=== PATIENT | female | born 1985 | race Two or more races ===

== ENCOUNTER 2018-07-21 18:30 | Emergency (ER) | payer MEDICAID, OTHER ==
[~2018-07-21] VITALS: Ht 154.9 cm; Wt 45.4 kg
--- NOTE | 2018-07-21 18:47 | NUR ---
ED Nurse Note: Patient brought in by staff from [facility] d/t BLE edema for 4 days, per staff from [facility], she has gained 4lbs over 1 month. patient is nonverbal at this time, able to follow simple commands
[2018-07-21] MEDS ORDERED: HUMALOG100 UNIT/4 SUBQ (18:53)
[2018-07-21] MEDS ORDERED: BENADRYL25 MG ORAL (18:53)
[2018-07-21] MEDS ORDERED: RISPERDAL0.5 MG ORAL (18:53)
[2018-07-21 19:05] VITALS: BP 112/68
--- NOTE | 2018-07-21 19:09 | NUR ---
HAND-OFF: Report given to RADHA DIXON. caregiver at bedside, patient on the monitor, VSS
--- NOTE | 2018-07-21 19:10 | NUR ---
ED Nurse Note: PAtient relaxing iwth healthcare administrative assistant at bedside. vital signs are within normal range. Patient also cooperative for IV start and blood draw. 20G placed at left AC.
[2018-07-21] MEDS ORDERED: cefTRIAXone 1 GM in NS 55 ML IVPB ONE (19:15)
[2018-07-21 19:33] VITALS: BP 92/49
[2018-07-21 19:38] LABS: ANION GAP 7 mmol/L (5-15); BLOOD UREA NITROGEN 16 mg/dL (7-18); CALCIUM 8.7 MG/DL (8.5-10.1); CARBON DIOXIDE 28 MMOL/L (21-32); CHLORIDE 101 MMOL/L (98-107); CREATININE 0.8 MG/DL (0.55-1.30); SODIUM 136 MMOL/L (136-145)
[2018-07-21 19:45] LABS: ALANINE AMINOTRANSFERASE 19 U/L (12-78); ALBUMIN/GLOBULIN RATIO 0.9 (1.0-2.7); ALKALINE PHOSPHATASE 140 U/L (46-116); ASPARTATE AMINO TRANSFERASE 17 U/L (15-37); BILIRUBIN,TOTAL 0.2 MG/DL (0.2-1.0)
--- NOTE | 2018-07-21 19:55 | Emergency Room Report ---
History of Present Illness General Chief Complaint: General Complaint Source: Medical Record, Caregiver Present Illness HPI 33-year-old female presents ED for evaluation. Musical Engineer at bedside states that patient was brought here for evaluation of her feet. Noted to be both erythematous with some swelling extending up to the calf bilaterally. Has been there for some time. Patient is a diabetic. Accu-Chek within normal limits. Patient has MR. Unable to provide any history. No fevers or chills. No signs of distress. No other aggravating relieving factors. No other associated symptoms Allergies: Coded Allergies: No Known Allergies (Unverified , 03/26/15) Patient History Past Medical History: DM, other - MR Pertinent Family History: none Social History: Denies: smoking, alcohol use, drug use Now: No Immunizations: UTD Reviewed Nursing Documentation: PMH: Agreed; PSxH: Agreed Nursing Documentation-PMH Past Medical History: No History, Except For Hx Diabetes: Yes - Type II Hx Neurological Problems: Yes - Severe Intellectual defecits Review of Systems All Other Systems: limited Physical Exam Vital Signs Date Time Temp Pulse Resp B/P (MAP) Pulse Ox O2 Delivery O2 Flow Rate FiO2 07/21/18 18:41 97.0 76 18 99 Room Air 07/21/18 19:05 112/68 Sp02 EP Interpretation: reviewed, normal General Appearance: no apparent distress, non-toxic, other - MR Head: normocephalic Eyes: bilateral eye normal inspection, bilateral eye PERRL ENT: normal ENT inspection Neck: normal inspection Respiratory: chest non-tender, lungs clear, normal breath sounds, speaking full sentences Cardiovascular #1: regular rate, rhythm, no edema Gastrointestinal: normal inspection Rectal: deferred Genitourinary: no CVA tenderness Musculoskeletal: swelling - bilateral feet Neurologic: alert, motor strength/tone normal, sensory intact, other - MR Psychiatric: other - MR Skin: other - erythema bilateral feet Lymphatic: normal inspection Medical Decision Making Diagnostic Impression: Primary Impression: Cellulitis of both lower extremities ER Course Hospital Course 33-year-old female presents to ED with redness, swelling to lower extremities Differential diagnoses include: Cellulitis, renal failure abscess, rash. Clinical course Patient placed on stretcher. After initial history and physical I ordered labs , IVFs, abx labs reviewed - no leukocytosis, Hb/Hct stable, no electrolyte abnormalities. antibiotics given. Discussed findings with take off man. Patient afebrile, nontoxic appearing. No signs of renal failure. History of diabetes but glucose is well-controlled. We'll discharged to home with antibiotics. Safe for discharge and close outpatient follow-up. Musical Engineer states patient has a PMD Diagnosis - cellulitis Stable and discharged home with prescription for Keflex. Follow-up with PMD. Return to ED if symptoms recur or worsen Labs Test 07/21/18 19:13 White Blood Count 7.1 K/UL (4.8-10.8) Red Blood Count 4.15 M/UL (4.20-5.40) Hemoglobin 12.1 G/DL (12.0-16.0) Hematocrit 35.4 % (37.0-47.0) Mean Corpuscular Volume 85 FL (80-99) Mean Corpuscular Hemoglobin 29.2 PG (27.0-31.0) Mean Corpuscular Hemoglobin Concent 34.2 G/DL (32.0-36.0) Red Cell Distribution Width 10.4 % (11.6-14.8) Platelet Count 235 K/UL (150-450) Mean Platelet Volume 5.4 FL (6.5-10.1) Neutrophils (%) (Auto) 72.3 % (45.0-75.0) Lymphocytes (%) (Auto) 14.3 % (20.0-45.0) Monocytes (%) (Auto) 11.6 % (1.0-10.0) Eosinophils (%) (Auto) 0.8 % (0.0-3.0) Basophils (%) (Auto) 1.0 % (0.0-2.0) Sodium Level 136 MMOL/L (136-145) Potassium Level 4.0 MMOL/L (3.5-5.1) Chloride Level 101 MMOL/L (98-107) Carbon Dioxide Level 28 MMOL/L (21-32) Anion Gap 7 mmol/L (5-15) Blood Urea Nitrogen 16 mg/dL (7-18) Creatinine 0.8 MG/DL (0.55-1.30) Estimat Glomerular Filtration Rate > 60 mL/min (>60) Glucose Level 93 MG/DL (74-106) Calcium Level 8.7 MG/DL (8.5-10.1) Total Bilirubin 0.2 MG/DL (0.2-1.0) Aspartate Amino Transf (AST/SGOT) 17 U/L (15-37) Alanine Aminotransferase (ALT/SGPT) 19 U/L (12-78) Alkaline Phosphatase 140 U/L (46-116) Total Protein 6.4 G/DL (6.4-8.2) Albumin 3.0 G/DL (3.4-5.0) Globulin 3.4 g/dL Albumin/Globulin Ratio 0.9 (1.0-2.7) Last Vital Signs Date Time Temp Pulse Resp B/P (MAP) Pulse Ox O2 Delivery O2 Flow Rate FiO2 07/21/18 19:33 97.0 75 19 92/49 100 Room Air 75 Status: improved Disposition: HOME, SELF-CARE Condition: Stable Scripts Cephalexin* (KEFLEX*) 500 Mg Capsule 500 MG ORAL EVERY 6 HOURS for 7 Days, CAP Prov: Shahid Cabrera MD 07/21/18 Referrals: [facility],REFERRING (PCP) Shahid Cabrera MD July 21, 2018 19:55
[2018-07-21 20:00] LABS: EOSINOPHILS % (AUTO) 0.8 % (0.0-3.0); HEMATOCRIT 35.4 % (37.0-47.0); HEMOGLOBIN 12.1 G/DL (12.0-16.0); LYMPHOCYTES % (AUTO) 14.3 % (20.0-45.0); MEAN CORPUSCULAR VOLUME 85 FL (80-99); MONOCYTES % (AUTO) 11.6 % (1.0-10.0); NEUTROPHILS % (AUTO) 72.3 % (45.0-75.0); PLATELET COUNT 235 K/UL (150-450); RED BLOOD COUNT 4.15 M/UL (4.20-5.40); RED CELL DISTRIBUTION WIDTH 10.4 % (11.6-14.8); WHITE BLOOD COUNT 7.1 K/UL (4.8-10.8)
[2018-07-21 20:11] VITALS: BP 93/50
[2018-07-21] MEDS ORDERED: CEPHALEXIN500 MG ORAL (20:22)
[2018-07-21 20:30] VITALS: BP 93/50
--- NOTE | 2018-07-21 20:30 | NUR ---
ED Nurse Note: Patient cleared for discharge by eRMD, no s/s of acute distress. vital signs stable. Caregiver verbalized understanding of discharge instructions. IV removed, ID band removed. patient departed with all personal belongings.
== END 2018-07-21 20:30 | disposition home or self-care (01) ==
LOC: EMR 19:07
DX: L03.116 Cellulitis of left lower limb (principal); L03.115 Cellulitis of right lower limb; E11.9 Type 2 diabetes mellitus without complications
CPT/HCPCS: 36415; 80053; 85025; 96365; 99284; J0696